=== PATIENT | female | born 1935 | race Caucasian/White ===

== ENCOUNTER 2017-02-20 11:47 | Inpatient (IN) | payer OTHER, MEDICARE ==
[~2017-02-20] VITALS: Ht 157.5 cm; Wt 65.9 kg
[2017-02-20] VITALS (11 sets, daily range): BP systolic 166–231; BP diastolic 81–120; PULSE 81–107; RESP 16–20; TEMP 98.2–98.3; O2SAT 96–99
[2017-02-20] MEDS ORDERED: SODIUM CHLOR 0.9% 1000 ML INJ 1,000 ML IV ONE (11:55)
--- NOTE | 2017-02-20 12:03 | PD ---
HPI Chief Complaint: stroke alert Time Seen by Provider: 11:55 Travel History International Travel<30 days: No Contact w/Intl Traveler<30days: No Traveled to known affect area: No History of Present Illness HPI This is an 81-year-old female who is currently at [facility] for a fractured pelvis, who presents after having an episode of unresponsiveness and dysarthria, facial droop followed by right sided upper and lower extremity weakness. Family member who is at the bedside stated that she was with her when this happened. She states that she had the above symptoms and then had an episode of emesis. The patient has obvious weakness in her right upper and right lower extremity. There is some residual weakness from the pelvic fracture. They report this is worse than her baseline from the pelvic fracture. [facility] Social History Tobacco Use: No Allergies-Medications (Allergen,Severity, Reaction): Coded Allergies: No Known Allergies (Verified , 02/20/17) Reported Meds & Prescriptions Reported Meds & Active Scripts Active Reported Tramadol (Tramadol HCl) 50 Mg Tab 100 Mg PO Q6H PRN One Daily Multivitamin (Multivitamin) 1 Each Tablet 1 Tab PO DAILY Milk of Magnesia Concentrate Liq (Magnesium Hydroxide) 1,200 Mg/5 Ml Susp 30 Ml PO DAILY PRN Folic Acid 800 Mcg Cap 800 Mcg PO BID Dulcolax Supp (Bisacodyl) 10 Mg Supp 10 Mg RECTAL DAILY PRN Citroma Liq (Magnesium Citrate) 300 Ml Liq 300 Ml PO DAILY PRN C-1000 (Ascorbic Acid) 1,000 Mg Tablet 1 Tab PO DAILY Tylenol (Acetaminophen) 325 Mg Tab 650 Mg PO Q4H PRN Review of Systems Except as stated in HPI: all other systems reviewed are Neg General / Constitutional: No: Fever HENT: No: Headaches, Vertigo, Neck Pain Cardiovascular: No: Chest Pain or Discomfort, Palpitations Respiratory: No: Cough, Shortness of Breath Gastrointestinal: Positive: Nausea (times one episode), Vomiting (times one episode) Genitourinary: No: Incontinence Musculoskeletal: Positive: Weakness (right sided lower extremity weakness from the pelvic fracture), Other (recent pelvic fracture) Neurologic: Positive: Weakness (right upper and right lower extremity), Change in Mentation (prior to arrival), Slurred Speech (reported prior to arrival, improved now), No: Headache Physical Exam Narrative GENERAL: Well-developed well-nourished female who is awake enzymes what confused. She does have some mild dysarthria. SKIN: Focused skin assessment warm/dry. HEAD: Atraumatic. Normocephalic. EYES: PNo scleral icterus. No injection or drainage. ENT: No nasal bleeding or discharge. Mucous membranes pink and moist. NECK: Trachea midline. No JVD. CARDIOVASCULAR: Tachycardic which appears to be sinus tach.. No murmur appreciated. RESPIRATORY: No accessory muscle use. Clear to auscultation. Breath sounds equal bilaterally. GASTROINTESTINAL: Abdomen soft, non-tender, nondistended. Hepatic and splenic margins not palpable. MUSCULOSKELETAL: No obvious deformities. No clubbing. No cyanosis. No edema. NEUROLOGICAL: Awake and confused. No obvious facial droop. Patient has weakness in her right upper extremity/3-4 out of 5. She has 2 out of 5 strength in the right lower extremity. Left upper and left lower extremity are 5 out of 5 strength PSYCHIATRIC: Appropriate mood and affect; insight and judgment normal. Data Data Last Documented VS Vital Signs Date Time Temp Pulse Resp B/P Pulse Ox O2 Delivery O2 Flow Rate FiO2 02/20/17 12:49 88 20 182/96 97 Nasal Cannula 2 02/20/17 11:47 98.3 Orders Diet Npo (02/20/17 Lunch) Activity Bed Rest (02/20/17 ) Electrocardiogram (02/20/17 ) I-Stat Creatinine (02/20/17 11:55) I-Stat Profile (02/20/17 11:55) Prothrombin Time / Inr (Pt) (02/20/17 11:55) Act Partial Throm Time (Ptt) (02/20/17 11:55) Complete Blood Count With Diff (02/20/17 11:55) Fibrinogen (02/20/17 11:55) Creatine Kinase (Cpk) (02/20/17 11:55) Troponin I (02/20/17 11:55) Ua Includes Microscopic (02/20/17 11:55) Drug Screen, Random Urine (02/20/17 11:55) Type And Screen (02/20/17 11:55) Ct Brain W/O Iv Contrast(Rout) (02/20/17 ) Consult Neurology (02/20/17 ) Blood Glucose (02/20/17 11:55) Ecg Monitoring (02/20/17 11:55) Neuro Checks Q2HX12,Q4H (02/20/17 11:55) Nursing Bedside Swallow Assess .ONCE (02/20/17 11:55) Iv Access Insert/Monitor (02/20/17 11:55) NPO (02/20/17 11:55) Oximetry (02/20/17 11:55) Oxygen Administration (02/20/17 11:55) Sodium Chlor 0.9% 1000 Ml Inj (Ns 1000 M (02/20/17 11:55) Resp Oxygen Matt C Titrat 1-4 L (02/20/17 11:55) Cath For Specimen (02/20/17 11:55) Metoprolol Tartrate Inj (Lopressor Inj) (02/20/17 12:15) Hydralazine Inj (Apresoline Inj) (02/20/17 12:30) (Hub Use Only)Inp Phy Cons/Ref (02/20/17 ) CKMB (02/20/17 12:15) CKMB% (02/20/17 12:15) Code Status (02/20/17 13:10) Vital Signs (Adult) Q4H (02/20/17 13:10) Nih Stroke Scale - Nihss .On admission and discharge (02/20/17 13:10) Neuro Checks Q4H (02/20/17 13:10) Consult Pt Eval & Treat (02/20/17 13:10) Case Management Consult (02/20/17 ) Activity Bed Rest (02/20/17 13:10) Nursing Bedside Swallow Assess .ONCE (02/20/17 13:10) Scd Bilateral/Knee High TORI.QSHIFT (02/20/17 13:10) Hemoglobin (Hgb) A1c (02/20/17 13:10) Lipid Profile (02/21/17 06:00) Us Carotid Arteries Comp Bilat (02/20/17 ) Mra Brain W/O Contrast (Cow) (02/20/17 ) Mri Brain W/O Contrast (02/20/17 ) Echo 2d Comp With Doppler (02/20/17 ) Remove Urinary Catheter .ONCE (02/20/17 13:10) Resp Oxygen Matt C Titrat 1-4 L (02/20/17 ) ^ Hold Medication (02/20/17 13:10) Sodium Chloride 0.9% Flush (Ns Flush) (02/20/17 21:00) Sodium Chloride 0.9% Flush (Ns Flush) (02/20/17 13:15) Sodium Chlor 0.9% 1000 Ml Inj (Ns 1000 M (02/20/17 13:10) Labetalol Inj (Trandate Inj) (02/20/17 13:15) Nicardipine Inj (Cardene Inj) (02/20/17 13:15) Aspirin Chew (Aspirin Chew) (02/21/17 09:00) Atorvastatin (Lipitor) (02/20/17 21:00) Bedside Glucose TORI.AC&HS (02/20/17 13:10) ^ Discontinue Insulin Orders (02/20/17 13:10) Insulin Aspart Supplemtl Scale (Novolog (02/20/17 16:00) Dextrose 50% In Breonna (Vial) Inj (D50w (Vi (02/20/17 13:15) Glucagon Inj (Glucagon Inj) (02/20/17 13:15) Consult Stoke Navigator (02/20/17 ) Heparin Inj (Heparin Inj) (02/20/17 13:15) Scd Bilateral/Knee High TORI.BID (02/20/17 13:10) Folic Acid (Folate) (02/20/17 21:00) (Nf) Ascorbic Acid (C-1000) (02/21/17 09:00) (Nf) Multivitamin (One Daily Multivitami (02/21/17 09:00) Hydralazine Inj (Apresoline Inj) (02/20/17 13:15) Labs Laboratory Tests Test 02/20/17 02/20/17 12:00 12:15 Blood Type A POSITIVE Antibody Screen NEGATIVE Blood Bank Comment White Blood Count 10.7 TH/MM3 Red Blood Count 4.24 MIL/MM3 Hemoglobin 13.7 GM/DL Bedside Hemoglobin 13.6 G/DL Hematocrit 40.2 % Bedside Hematocrit 40.0 % Mean Corpuscular Volume 94.6 FL Mean Corpuscular Hemoglobin 32.2 PG Mean Corpuscular Hemoglobin 34.0 % Concent Red Cell Distribution Width 14.0 % Platelet Count 297 TH/MM3 Mean Platelet Volume 8.1 FL Neutrophils (%) (Auto) 79.5 % Lymphocytes (%) (Auto) 9.4 % Monocytes (%) (Auto) 8.7 % Eosinophils (%) (Auto) 1.5 % Basophils (%) (Auto) 0.9 % Neutrophils # (Auto) 8.5 TH/MM3 Lymphocytes # (Auto) 1.0 TH/MM3 Monocytes # (Auto) 0.9 TH/MM3 Eosinophils # (Auto) 0.2 TH/MM3 Basophils # (Auto) 0.1 TH/MM3 CBC Comment DIFF FINAL Differential Comment Prothrombin Time 10.8 SEC Prothromb Time International 1.0 RATIO Ratio Activated Partial 27.1 SEC Thromboplast Time Fibrinogen 471 mg/dL Bedside Sodium 138 MMOL/L Bedside Potassium 3.8 MMOL/L Bedside Chloride 102 MMOL/L Bedside Blood Urea Nitrogen 15 MG/DL Bedside Creatinine 0.6 MG/DL Bedside Glucose 110 MG/DL Total Creatine Kinase 199 U/L Creatine Kinase MB 2.1 NG/ML Creatine Kinase MB % 1.1 % Troponin I LESS THAN 0.02 NG/ML MDM Medical Screen Exam Complete: Yes Emergency Medical Condition: Yes Differential Diagnosis TIA versus CVA versus hypertensive crisis Narrative Course 81-year-old female presents as a stroke alert. The patient had an episode where she became unresponsive with a facial droop and slurred speech. She also had right upper and right lower extremity weakness. She has residual right upper extremity and right lower extremity weakness from her injury 1-1/2 weeks ago. She had no facial droop with minimal slurred speech on my examination. Her stroke scale was 5. I discussed the case with Dr. Avalos, automotive fuel injection servicer neurologist who agrees at this point the patient is not a candidate for TPA given the fact that she had uncontrolled hypertension as well as the recent pelvic fracture. She's been given 2 doses of IV antihypertensives her blood pressure has come down to 180s over 90s. The case was discussed with Dr. Kirkpatrick, medical steel burner who will admit the patient to his service. Stroke Alert NIHSS NIH Stroke Scale Result: 5 NIHSS Time Completed: 11:47 Thrombolytic Contraindications Contraindications: Uncontrolled HTN at event Contraindications Comment: In addition to the uncontrolled hypertension, patient also had pelvic fracture within 2 weeks. This would make her at risk for internal bleeding if we were to give her TPA. This was discussed with Dr. Cristopher Avalos who agrees with the holding off on TPA. Diagnosis Diagnosis: Primary Impression: CVA (cerebral vascular accident) Qualified Code: I63.9 - Cerebrovascular accident (CVA), unspecified mechanism Additional Impression: Hypertensive crisis Admitting Physician Requests: Admit Guillermo Frankel MD Feb 20, 2017 12:03
[2017-02-20] MEDS ORDERED: METOPROLOL TARTRATE 5 MG/5 ML VIAL IV PUSH ONE (12:15)
--- NOTE | 2017-02-20 12:16 | RADRPT ---
EXAM DATE/TIME: 02/20/2017 12:02 [facility] COMPARISON: No previous studies available for comparison. INDICATIONS : Right side weakness RADIATION DOSE: 56.35 CTDIvol (mGy) This report was called by Dr. Johnson to <<Dr. Frankel> at <<1212pm>> MEDICAL HISTORY : Unable to obtain SURGICAL HISTORY : Unable to obtain ENCOUNTER: Initial ACUITY: 1 day PAIN SCALE: 0/10 LOCATION: cranial TECHNIQUE: Multiple contiguous axial images were obtained of the head. Using automated exposure control and adj ustment of the mA and/or kV according to patient size, radiation dose was kept as low as reasonably a chievable to obtain optimal diagnostic quality images. DICOM format image data is available electro nically for review and comparison. FINDINGS: There is marked central and cortical atrophy with dilatation of ventricular and sulcal spaces. There is no parenchymal hemorrhage, acute infarction or mass lesion identified. There are no extra-axial fluid collections appreciated. The posterior fossa is unremarkable with midline fourth ventricle. T he portion of the orbits and paranasal sinuses visualized are unremarkable. There is hypodensity in the left basal ganglia likely old lacunar stroke. Marked atherosclerot ic disease left internal carotid bifurcation. CONCLUSION: No acute disease. Macario Johnson MD on February 20, 2017 at 12:12 Board Certified Radiologist. This report was verified electronically.
[2017-02-20] MEDS ORDERED: hydrALAZINE HCL 20 MG/ML VIAL IV PUSH ONE (12:30)
[2017-02-20 12:33] LABS: I-STAT POTASSIUM 3.8 MMOL/L (3.5-4.9); I-STAT SODIUM 138 MMOL/L (138-146)
[2017-02-20 12:37] LABS: AUTOMATED NEUTROPHIL # 8.5 TH/MM3 (1.8-7.7); BASOPHIL # 0.1 TH/MM3 (0-0.2); BASOPHIL % 0.9 % (0.0-2.0); EOSINOPHIL # 0.2 TH/MM3 (0-0.4); EOSINOPHIL % 1.5 % (0.0-4.0); HEMATOCRIT 40.2 % (35.0-46.0); HEMO FLAGS DIFF FINAL; LYMPH % 9.4 % (9.0-44.0); MEAN CELL VOLUME 94.6 FL (80.0-100.0); MEAN CORPUSCULAR HEMOGLOBIN 32.2 PG (27.0-34.0); MONO % 8.7 % (0.0-8.0); NEUT % 79.5 % (16.0-70.0); PLATELET COUNT 297 TH/MM3 (150-450); RED BLOOD COUNT 4.24 MIL/MM3 (4.00-5.30); WHITE BLOOD COUNT 10.7 TH/MM3 (4.0-11.0)
[2017-02-20 12:47] LABS: APTT (PATIENT) 27.1 SEC (24.3-30.1); PROTHROMBIN TIME - PATIENT 10.8 SEC (9.8-11.6)
[2017-02-20] MEDS ORDERED: DULC10SU3 RECTAL (12:54)
[2017-02-20] MEDS ORDERED: FOLI1CAP7 PO (12:54)
[2017-02-20] MEDS ORDERED: CITRSOL4 PO (12:54)
[2017-02-20] MEDS ORDERED: MILK2400 PO (12:54)
[2017-02-20] MEDS ORDERED: ONE-TAB14 PO (12:54)
[2017-02-20] MEDS ORDERED: TRAM50TA PO (12:54)
[2017-02-20] MEDS ORDERED: TYLE325T PO (12:54)
[2017-02-20] MEDS ORDERED: ASCO1TAB14 PO (12:54)
[2017-02-20 12:55] LABS: CREATINE KINASE 199 U/L (26-192)
[2017-02-20 13:08] LABS: CKMB 2.1 NG/ML (0.5-3.6)
[2017-02-20] MEDS: SODIUM CHLOR 0.9% 1000 ML INJ 1,000 ML IV SCH (13:10)
[2017-02-20] MEDS ORDERED: ACETAMINOPHEN/HYDROcodone 325 MG/5 MG TAB PO PRN (13:15)
[2017-02-20] MEDS ORDERED: BISACODYL 10 MG SUPP RECTAL PRN (13:15)
[2017-02-20] MEDS ORDERED: MISCELLANEOUS NURSING INFORMATION XX SCH (13:15)
[2017-02-20] MEDS ORDERED: SODIUM CHLORIDE 0.9% FLUSH 5 ML FLUSH IV FLUSH PRN ×2 (13:15→21:45)
[2017-02-20] MEDS ORDERED: LACTULOSE SYRUP 20 GM/30 ML CUP PO PRN (13:15)
[2017-02-20] MEDS ORDERED: RESP: ALBUTEROL 2.5 MG/3 ML NEB (PRN) INH (13:15)
[2017-02-20] MEDS ORDERED: SODIUM CHLORIDE 0.9% FLUSH 10 ML FLUSH IV FLUSH PRN (13:15)
[2017-02-20] MEDS ORDERED: CHLORHEXIDINE GLUCONATE 2 % 1 PACK (2 CLOTHS) TOP PRN (13:15)
[2017-02-20] MEDS ORDERED: ONDANSETRON HCL 4 MG/2 ML VIAL IV PRN (13:15)
[2017-02-20] MEDS ORDERED: GLUCAGON 1 MG/ML VIAL OTHER PRN ×2 (13:15→21:45)
[2017-02-20] MEDS ORDERED: hydrALAZINE HCL 20 MG/ML VIAL IV PUSH PRN (13:15)
[2017-02-20] MEDS ORDERED: MAGNESIUM HYDROXIDE SUSP 30 ML CUP PO PRN (13:15)
[2017-02-20] MEDS ORDERED: SENNOSIDES 8.6 MG TAB PO PRN (13:15)
[2017-02-20] MEDS ORDERED: ACETAMINOPHEN 325 MG TAB PO PRN (13:15)
[2017-02-20] MEDS ORDERED: DEXTROSE 50% IN WATER 50 ML VIAL(D50) IV PUSH PRN ×2 (13:15→21:45)
[2017-02-20] MEDS ORDERED: niCARdipine INJ 25 MG in SODIUM CHLOR 0.9% 250 ML INJ 250 ML IV SCH (13:15)
--- NOTE | 2017-02-20 13:19 | HHI.HP ---
[facility] Service Critical Care Medicine Primary Care Physician Unknown Admission Diagnosis CVA Diagnosis: (1) CVA (cerebral vascular accident) Diagnosis: Principal (2) Hypertensive crisis Diagnosis: Principal (3) Pelvic fracture Diagnosis: Principal Chief Complaint: Right-sided weakness Travel History International Travel<30 Days: No Contact w/Intl Traveler <30 Da: No Traveled to Known Affected Are: No History of Present Illness 81-year-old . Admission . Past medical history includes hypertension. Patient is a resident of [facility]. Patient presents to [facility] from that facility with acute onset right-sided weakness and dysarthria. 20, patient was at a health food store one fell on her right side and had a right acetabular/pelvic fracture. Patient currently is weak on her right upper and lower extremity at baseline. At baseline. Today,. Presents to [facility] NIH score 5. 1 for right arm and leg drift, 2 for limb ataxia and [address] head revealed no acute intracranial findings. Dr. Avalos/neurology was notified. Due to recent pelvic fracture not a candidate for alteplase. Symptoms are resolving at the present time. Due to her underlying hypertension we are asked to Review of Systems Constitutional: COMPLAINS OF: Fatigue, DENIES: Fever, Weight gain, Weight loss Endocrine: DENIES: Polydipsia Eyes: DENIES: Blurred vision, Vision loss Ears, nose, mouth, throat: DENIES: Tinnitus, Oral lesions Respiratory: DENIES: Apneas Cardiovascular: DENIES: Chest pain Gastrointestinal: DENIES: Abdominal pain Genitourinary: DENIES: Urinary frequency, Urinary incontinence Musculoskeletal: COMPLAINS OF: Joint pain, Joint Swelling, DENIES: Back pain Integumentary: DENIES: Pruritus, Rash Hematologic/lymphatic: COMPLAINS OF: Bruising Immunologic/allergic: DENIES: Eczema Neurologic: DENIES: Abnormal gait, Headache Psychiatric: COMPLAINS OF: Confusion, DENIES: Anxiety Past Family Social History Allergies: Coded Allergies: No Known Allergies (Verified , 02/20/17) Past Medical History Hypertension Past Surgical History None Reported Medications Tramadol (Tramadol HCl) 50 Mg Tab 100 Mg PO Q6H PRN One Daily Multivitamin (Multivitamin) 1 Each Tablet 1 Tab PO DAILY Milk of Magnesia Concentrate Liq (Magnesium Hydroxide) 1,200 Mg/5 Ml Susp 30 Ml PO DAILY PRN Folic Acid 800 Mcg Cap 800 Mcg PO BID Dulcolax Supp (Bisacodyl) 10 Mg Supp 10 Mg RECTAL DAILY PRN Citroma Liq (Magnesium Citrate) 300 Ml Liq 300 Ml PO DAILY PRN C-1000 (Ascorbic Acid) 1,000 Mg Tablet 1 Tab PO DAILY Tylenol (Acetaminophen) 325 Mg Tab 650 Mg PO Q4H PRN Active Ordered Medications Reviewed in EMR Family History Mother and father both at early age due to alcohol abuse Social History Drinks one glass of wine daily. Quit tobacco in 1967. No IV drug use. Physical Exam Vital Signs Vital Signs Date Time Temp Pulse Resp B/P Pulse Ox O2 Delivery O2 Flow Rate FiO2 02/20/17 12:49 88 20 182/96 97 Nasal Cannula 2 02/20/17 12:36 81 20 212/105 97 Room Air 02/20/17 12:01 96 Nasal Cannula 2.00 02/20/17 11:47 97 Nasal Cannula 2 02/20/17 11:47 98.3 96 20 231/120 97 Physical Exam GENERAL: 81-year-old female, critically ill currently resting in bed in no acute distress SKIN: Warm and dry. No rash. Ecchymoses noted over right hip greater trochanteric region about 4 x 4 centimeters HEAD: Atraumatic. Normocephalic. EYES: Right pupil round 3 mm and fixed. Left pupil 2-3 mm and reactive No scleral icterus. No injection or drainage. ENT: No nasal bleeding or discharge. Mucous membranes pink and moist. NECK: Trachea midline. No JVD. CARDIOVASCULAR: Regular rate and rhythm. S1, S2. No S4 without murmur RESPIRATORY: Clear to auscultation bilaterally without wheezes rales or rhonchi GASTROINTESTINAL: Abdomen soft, non-tender, nondistended. Hepatic and splenic margins not palpable. MUSCULOSKELETAL: Right lower extremity everted. No sinus Peripheral edema. NEUROLOGICAL: Awake and alert. No obvious cranial nerve deficits. Strength 4 out of 5 right upper extremity. 3 out of 5 right lower extremity. 5+ out of 5 left upper extremity. Normal sensation to light touch and pinprick. Currently no pronator drift. Gait was not assessed. Laboratory Laboratory Tests Test 02/20/17 02/20/17 12:00 12:15 Blood Type A POSITIVE Blood Bank Comment White Blood Count 10.7 Red Blood Count 4.24 Hemoglobin 13.7 Bedside Hemoglobin 13.6 Hematocrit 40.2 Bedside Hematocrit 40.0 Mean Corpuscular Volume 94.6 Mean Corpuscular Hemoglobin 32.2 Mean Corpuscular Hemoglobin 34.0 Concent Red Cell Distribution Width 14.0 Platelet Count 297 Mean Platelet Volume 8.1 Neutrophils (%) (Auto) 79.5 Lymphocytes (%) (Auto) 9.4 Monocytes (%) (Auto) 8.7 Eosinophils (%) (Auto) 1.5 Basophils (%) (Auto) 0.9 Neutrophils # (Auto) 8.5 Lymphocytes # (Auto) 1.0 Monocytes # (Auto) 0.9 Eosinophils # (Auto) 0.2 Basophils # (Auto) 0.1 CBC Comment DIFF FINAL Differential Comment Prothrombin Time 10.8 Prothromb Time International 1.0 Ratio Activated Partial 27.1 Thromboplast Time Fibrinogen 471 Bedside Sodium 138 Bedside Potassium 3.8 Bedside Chloride 102 Bedside Blood Urea Nitrogen 15 Bedside Creatinine 0.6 Bedside Glucose 110 Total Creatine Kinase 199 Creatine Kinase MB 2.1 Creatine Kinase MB % 1.1 Troponin I LESS THAN 0.02 Result Diagram: 02/20/17 1215 Imaging Last Impressions Head CT 02/20/17 0000 Signed Impressions: Service Date/Time: Monday, February 20, 2017 12:02 - CONCLUSION: No acute disease. Macario Johnson MD Assessment and Plan Assessment and Plan Neuro/Psych: TIA? Right upper/lower extremity weakness acute CT brain 02/20 revealed no acute intracranial findings Neurology/Dr. Avalos consulted No plans for alteplase present due to recent pelvic fractures MRI/MRA brain ordered. Carotid Dopplers ordered Hemoglobin A1c, lipid panel ordered 2-D echocardiogram ordered Neurochecks per protocol CV: Hypertension crisis EKG revealed normal sinus rhythm rate 85. Normal IA, QT intervals. Troponin 0.02 2-D echocardiogram ordered purse stroke protocol Will keep systolic blood pressure less than 220, diastolic pressure less than 120 for 24 hours Lipid panel ordered Resp: Nasal cannula to maintain saturations greater than or equal to 92% Incentive spirometry while awake GI: Patient is currently nothing by mouth Protonix for GI prophylaxis Tammy-Colace for bowel regimen : Canales catheter if indicated for accurate I's and O's in a critically ill patient. Remove within 48 hours Endo: Sliding-scale insulin if indicated to maintain euglycemia Check hemoglobin A1c Renal: Creatinine currently within normal limits Urine output accurate I's and O's Heme: CBC within normal limits Coags within normal limits Recheck in a.m. ID: Monitor for infection FEN: Replace electrolytes as clinically indicated MSK: Recent pelvic fracture Obtain records from [facility] PT/OT evaluate and treat Access - Utilize peripheral IV. Central line if indicated Prophylaxis - GI - Protonix - DVT - SCD/heparin subcutaneous Level III admission Code Status Full code Discussed Condition With Dr. Frankel. Care plan discussed all questions answered. Problem Qualifiers (1) CVA (cerebral vascular accident): Qualified Code: I63.9 - Cerebrovascular accident (CVA), unspecified mechanism (2) Pelvic fracture: Qualified Code: S32.9XXS - Closed nondisplaced fracture of pelvis, unspecified part of pelvis, sequela Simone Kirkpatrick MD Feb 20, 2017 13:19
[2017-02-20 14:23] LABS: AMPHETAMINE, URINE NEG (NEG); BARBITURATES, URINE NEG (NEG); COCAINE, URINE NEG (NEG)
[2017-02-20 14:28] LABS: BACTERIA, URINE OCC /hpf; BLOOD, URINE NEG (NEG); GLUCOSE,URINE NEG (NEG); KETONE, URINE NEG (NEG); MUCUS URINE FEW /lpf (OCC); NITRITE,URINE NEG (NEG); SQUAMOUS EPITHELIAL CELL URINE <1 /hpf (0-5); URINE COLOR YELLOW (YELLW/STRAW)
--- NOTE | 2017-02-20 14:59 | RADRPT ---
EXAM DATE/TIME: 02/20/2017 13:53 [facility] COMPARISON: No previous studies available for comparison. INDICATIONS : Cerebrovascular accident. MEDICAL HISTORY : Hypertension. Confusion. SURGICAL HISTORY : None. ENCOUNTER: Initial ACUITY: 1 day PAIN SCORE: 08/16 LOCATION: Bilateral neck PEAK SYSTOLIC VELOCITIES (cm/sec): ICA/CCA RATIO: Right: 0.7 Left: 1.9 ICA: Right: 66 Left: 155 CCA: Right: 98 Left: 81 ECA: Right: 100 Left: 151 VERTEBRAL: Right: 33 antegrade Left: 34 antegrade Elevated flow velocities and ICA/CCA ratios have been found to correlate with increased degrees of vessel stenosis, calculated as percentage of diameter relative to a normal segment of distal ICA/CCA FINDINGS: RIGHT CAROTID: Calcified atherosclerotic plaque involving the carotid bulb and ICA origin. Less than 50% narrowing o f the ICA on grayscale analysis. The waveforms are within normal limits. LEFT CAROTID: Mild calcified plaque involving the ICA origin. No significant stenosis is visualized. The waveforms are within normal limits. VERTEBRAL ARTERIES: Antegrade flow is seen in both vertebral arteries. MISCELLANEOUS: None. CONCLUSION: 1. Calcified atherosclerotic plaque more abundant on the right. No hemodynamically significant stenos is observed. Mild elevation of the velocities of the distal left ICA felt to be due to the tortuosity of that vessel. 2. Antegrade flow involving both vertebral arteries. Tashi Polk Jr., MD on February 20, 2017 at 14:55 Board Certified Radiologist. This report was verified electronically.
[2017-02-20 15:26] LABS: TOTAL BILIRUBIN ADULT 0.9 MG/DL (0.2-1.0)
[2017-02-20 15:28] LABS: INDIRECT BILIRUBIN 0.7 MG/DL (0.0-0.8)
[2017-02-20] MEDS: HEPARIN SODIUM - SQ 10,000 UNITS/ML VIAL SQ SCH (15:49)
[2017-02-20] MEDS ORDERED: INSULIN ASPART SUPPLEMENTAL SCALE SQ SCH (16:00)
[2017-02-20 17:15] LABS: HEMOGLOBIN A1a 0.9 %; HEMOGLOBIN A1b 0.8 %; HEMOGLOBIN Ao 85.5 %; HEMOGLOBIN F 0.9 %; HEMOGLOBIN LA1C 2.2 %; HEMOGLOBIN P3 3.8 %
[2017-02-20] MEDS ORDERED: traMADol HCL 50 MG TAB PO ONE (19:15)
--- NOTE | 2017-02-20 19:29 | MG ---
cc: JACOB YOU MD Lab No: Date: Age: Sex: F Race: REFERRING PHYSICIAN: Dr. Kirkpatrick. HISTORY: Unresponsive, dysarthria, right-sided weakness, facial droop / stroke alert. MEDICATIONS: 1. Apresoline. 2. Lopressor. 3. Folic acid. 4. Tylenol. 5. A multivitamin. 6. Tramadol. DESCRIPTION OF THE RECORDING: The EEG recording shows intermittent slowing. There is phase reversal at epoch 123. There are sharp-like activities bilateral seen during the recording with occasional slowing of the background. Hyperventilation was not done. Photic stimulation did not induce driving response. INTERPRETATION: This is an abnormal EEG. The intermittent slowing may indicate an encephalopathic pattern. No electrographic seizures seen but the EEG recording reveals evidence of possible epileptogenicity. Clinical correlation is recommended. Jacob You MD [facility] /7:24 PM /7:30 PM
[2017-02-20] MEDS: ATORVASTATIN 10 MG TAB PO SCH (20:50)
[2017-02-20] MEDS: FOLIC ACID 1 MG TAB PO SCH (20:50)
[2017-02-20] MEDS: DOCUSATE SODIUM 50 MG/SENNA 8.6 MG TAB PO SCH (20:51)
[2017-02-20] MEDS ORDERED: SODIUM CHLORIDE 0.9% FLUSH 10 ML FLUSH IV FLUSH SCH (21:00)
[2017-02-20] MEDS ORDERED: SODIUM CHLORIDE 0.9% FLUSH 5 ML FLUSH IV FLUSH SCH (21:00)
[2017-02-20] MEDS: LABETALOL HCL 100 MG/20 ML VIAL IV PRN (22:03)
[2017-02-21] VITALS (11 sets, daily range): BP systolic 128–209; BP diastolic 77–107; PULSE 59–97; RESP 17–24; TEMP 96.5–99.2; O2SAT 94–96
[2017-02-21] MEDS: SODIUM CHLOR 0.9% 1000 ML INJ 1,000 ML IV SCH ×2 (03:28→16:47)
[2017-02-21] MEDS: CHLORHEXIDINE GLUCONATE 2 % 1 PACK (2 CLOTHS) TOP SCH (04:00)
[2017-02-21] MEDS: HEPARIN SODIUM - SQ 10,000 UNITS/ML VIAL SQ SCH ×2 (04:01→14:49)
[2017-02-21 04:35] LABS: MAGNESIUM 2.1 MG/DL (1.5-2.5)
[2017-02-21 04:37] LABS: HDL CHOLESTEROL 63.6 MG/DL (40.0-60.0); LDL CHOLESTEROL 96 MG/DL (0-99)
[2017-02-21] MEDS: INSULIN ASPART SUPPLEMENTAL SCALE SQ SCH ×4 (06:48→20:55)
[2017-02-21] MEDS: LABETALOL HCL 100 MG/20 ML VIAL IV PRN (07:32)
--- NOTE | 2017-02-21 08:31 | MB ---
cc: RUTH CASIANO M.D. DATE OF CONSULTATION 02/20/2017 REASON FOR CONSULTATION Stroke alert HISTORY OF PRESENT ILLNESS Ms. Bhakta is a very nice 81-year-old woman who has a history of recent pelvic fracture a couple of weeks ago. She is a resident at [facility]. She developed acute onset of right-sided weakness involving the arm and leg today and presented to the hospital as a stroke alert. I discussed the case to Dr. Guillermo Frankel in the ER. Her NIH stroke scale is a five. Her CT was negative. She was showing significant improvement in her symptoms because of the recent hip fracture. I felt that she was not a candidate for IV tPA especially in view of the fact that she was improving. She was also not a candidate for evaluation for interventional therapy given the NIH stroke scale less than six and no aphasia. In the interim, she has shown significant improvement in her right-sided strength, but still feels somewhat weak on the right side. PAST MEDICAL HISTORY 1. History of recent pelvic fracture. 2. Hypertension MEDICATIONS AT HOME 1. Tramadol 2. Multivitamins 3. Milk of Magnesia 4. Folic acid 5. Dulcolax 6. Citroma 7. Tylenol 8. Vitamin C 9. She takes an aspirin 81 mg daily. NEUROLOGIC EXAMINATION VITAL SIGNS: Her blood pressure is 217/106, pulse is 90, respirations are 20, temperature 98.2 degrees. Higher cortical functions normal. Cranial nerves intact. Motor exam, she has trace weakness in the right arm and right leg at 4+/5 with normal strength on the left. Sensory exam intact. Reflexes symmetric. CT of the brain, no acute change present. Carotid ultrasound, calcified plaque more on the right. No significant lesion identified. LABORATORY DATA The white count is 10,700, hemoglobin 13.7, hematocrit 40.2% platelet count 297,000, PT 10.8, INR 1, APTT 27. Sodium 138, potassium 3.8, chloride 102, BUN is 15, creatinine 0.6, glucose 110. IMPRESSION Left hemisphere stroke versus TIA. The patient was not a tPA candidate due to the recent pelvic fracture and also improving NIH stroke scale. RECOMMENDATIONS I would increase the aspirin to 325 mg daily. We will check an echocardiogram, monitor cardiac telemetry to rule out atrial fibrillation and also check a lipid panel. MD ANGELA Crooks /9:46 PM /8:30 AM
[2017-02-21] MEDS ORDERED: ASPIRIN 81 MG CHEW TAB PO SCH (09:00)
--- NOTE | 2017-02-21 09:06 | HHI.CCPN ---
Subjective Remarks/Hospital Course 81-year-old . Admission . Past medical history includes hypertension. Patient is a resident of [facility]. Patient presents to [facility] from that facility with acute onset right-sided weakness and dysarthria. 20, patient was at a health food store one fell on her right side and had a right acetabular/pelvic fracture. Patient currently is weak on her right upper and lower extremity at baseline. At baseline. Today,. Presents to [facility] NIH score 5. 1 for right arm and leg drift, 2 for limb ataxia and [address] head revealed no acute intracranial findings. Dr. Avalos/neurology was notified. Due to recent pelvic fracture not a candidate for alteplase. Symptoms are resolving at the present time. Due to her underlying hypertension we are asked to admit Subjective 02/21: Lying in bed. Remains with right upper extremity weakness. Still somewhat confused. EEG noted to be abnormal as below. MRI/A brain pending. Carotid Dopplers showed less than 50% stenosis right greater than left. Objective Vital Signs Date Time Temp Pulse Resp B/P Pulse Ox O2 Delivery O2 Flow Rate FiO2 02/21/17 06:00 62 02/21/17 04:00 98.7 21 209/107 95 02/20/17 20:04 Nasal Cannula 2.00 Intake and Output 02/20/17 02/20/17 02/20/17 07:59 15:59 23:59 Intake Total 669 ml Balance 669 ml Result Diagram: 02/20/17 1215 Imaging Last [address] 02/20/17 0000 Signed Impressions: Service Date/Time: Monday, February 20, 2017 12:02 - CONCLUSION: No acute disease. Macaroi Johnson MD Carotid Artery Ultrasound 02/20/17 0000 Signed Impressions: Service Date/Time: Monday, February 20, 2017 13:53 - CONCLUSION: 1. Calcified atherosclerotic plaque more abundant on the right. No hemodynamically significant stenosis observed. Mild elevation of the velocities of the distal left ICA felt to be due to the tortuosity of that vessel. 2. Antegrade flow involving both vertebral arteries. Tashi Polk Jr., MD Objective Remarks GENERAL: 81-year-old female, critically ill currently resting in bed in no acute distress SKIN: Warm and dry. No rash. Ecchymoses noted over right hip greater trochanteric region about 4 x 4 centimeters HEAD: Atraumatic. Normocephalic. EYES: Right pupil round 3 mm and fixed. Left pupil 2-3 mm and reactive No scleral icterus. No injection or drainage. ENT: No nasal bleeding or discharge. Mucous membranes pink and moist. NECK: Trachea midline. No JVD. CARDIOVASCULAR: Regular rate and rhythm. S1, S2. No S4 without murmur RESPIRATORY: Clear to auscultation bilaterally without wheezes rales or rhonchi GASTROINTESTINAL: Abdomen soft, non-tender, nondistended. Hepatic and splenic margins not palpable. MUSCULOSKELETAL: Right lower extremity everted. No sinus Peripheral edema. NEUROLOGICAL: Awake and alert. No obvious cranial nerve deficits. Strength 4 out of 5 right upper extremity. 3 out of 5 right lower extremity. 5+ out of 5 left upper extremity. Normal sensation to light touch and pinprick. Currently no pronator drift. Gait was not assessed. A/P Assessment and Plan Neuro/Psych: TIA? Versus left hemispheric stroke Right upper/lower extremity weakness acute Possible right epileptiform activity CT brain 02/20 revealed no acute intracranial findings Carotid Dopplers 02/20 revealed less than 50% stenosis plaque at carotid bulb right ICA. Left carotid bulb with negative stenosis. EEG revealed moderate encephalopathy with possible epileptiform activity right side. Restarting Keppra 500 IV twice a day. Repeat EEG in a.m. Neurology/Dr. Avalos consulted No plans for alteplase present due to recent pelvic fractures MRI/MRA brain ordered. Hemoglobin A1c I 5.5, lipid panel showed elevated HDL of 63. Otherwise normal 2-D echocardiogram ordered Neurochecks per protocol Given aspirin 325 mg by mouth daily CV: Hypertension crisis Elevated HDL EKG revealed normal sinus rhythm rate 85. Normal UT, QT intervals. Troponin 0.02 2-D echocardiogram ordered complete stroke protocol Will keep systolic blood pressure less than 220, diastolic pressure less than 120 for 24 hours Continue Lipitor 10mg by mouth daily Resp: Nasal cannula to maintain saturations greater than or equal to 92% Incentive spirometry while awake GI: Advance diet as tolerated Protonix for GI prophylaxis Tammy-Colace for bowel regimen : Canales catheter if indicated for accurate I's and O's in a critically ill patient. Remove within 48 hours Endo: Sliding-scale insulin if indicated to maintain euglycemia Check hemoglobin A1c5.5 Renal: Creatinine currently within normal limits Urine output accurate I's and O's Heme: CBC within normal limits Coags within normal limits Recheck in a.m. ID: Monitor for infection FEN: Replace electrolytes as clinically indicated MSK: Recent pelvic fracture Obtain records from [facility] PT/OT evaluate and treat Access - Utilize peripheral IV. Central line if indicated Prophylaxis - GI - Protonix - DVT - SCD/heparin subcutaneous Level II follow-up Simone Kirkpatrick MD Feb 21, 2017 09:06
[2017-02-21] MEDS: SODIUM CHLORIDE 0.9% FLUSH 5 ML FLUSH IV FLUSH SCH ×2 (09:40→20:56)
[2017-02-21] MEDS: PANTOPRAZOLE SODIUM 40 MG VIAL IV SCH (09:40)
[2017-02-21] MEDS: DOCUSATE SODIUM 50 MG/SENNA 8.6 MG TAB PO SCH ×2 (09:41→20:54)
[2017-02-21] MEDS: ASPIRIN 325 MG TAB PO SCH (09:41)
[2017-02-21] MEDS: ASCORBIC ACID 500 MG TAB PO SCH (09:41)
[2017-02-21] MEDS: FOLIC ACID 1 MG TAB PO SCH ×2 (09:41→20:54)
[2017-02-21] MEDS: MULTIVITAMIN TAB PO SCH (09:41)
[2017-02-21] MEDS ORDERED: levETIRAcetam INJ 500 MG in SODIUM CHLORIDE 0.9% INJ 100 ML IV ONE (09:45)
[2017-02-21] MEDS ORDERED: amLODIPine BESYLATE 5 MG TAB PO ONE (09:45)
[2017-02-21] MEDS ORDERED: NITROGLYCERIN 2% OINT 1 GM PACKET TOPICAL PRN (09:45)
[2017-02-21] MEDS ORDERED: CARVEDILOL 6.25 MG TAB PO ONE (09:45)
--- NOTE | 2017-02-21 09:46 | PD.TRANSFR ---
Transfer Summary Admission Date Feb 20, 2017 at 16:07 Transfer Date: Feb 21, 2017 Admitting Diagnosis CVA Diagnoses: (1) CVA (cerebral vascular accident) Diagnosis: Principal (2) Hypertensive crisis Diagnosis: Principal (3) Pelvic fracture Diagnosis: Principal Significant Findings CT head- no acute intracranial findings Carotid Dopplers - less than 50% stenosis right greater than left EEG - possible epileptic activity right hemispheric Transfer Summary/Subjective See below Objective Vital Signs Date Time Temp Pulse Resp B/P Pulse Ox O2 Delivery O2 Flow Rate FiO2 02/21/17 06:00 62 02/21/17 04:00 98.7 21 209/107 95 02/20/17 20:04 Nasal Cannula 2.00 Intake and Output 02/20/17 02/20/17 02/21/17 08:00 16:00 00:00 Intake Total 669 ml Balance 669 ml Result Diagram: 02/20/17 1215 Imaging Last [address] 02/20/17 0000 Signed Impressions: Service Date/Time: Monday, February 20, 2017 12:02 - CONCLUSION: No acute disease. Macario Johnson MD Carotid Artery Ultrasound 02/20/17 0000 Signed Impressions: Service Date/Time: Monday, February 20, 2017 13:53 - CONCLUSION: 1. Calcified atherosclerotic plaque more abundant on the right. No hemodynamically significant stenosis observed. Mild elevation of the velocities of the distal left ICA felt to be due to the tortuosity of that vessel. 2. Antegrade flow involving both vertebral arteries. Tashi Polk Jr., MD Objective Remarks GENERAL: 81-year-old female, critically ill currently resting in bed in no acute distress SKIN: Warm and dry. No rash. Ecchymoses noted over right hip greater trochanteric region about 4 x 4 centimeters HEAD: Atraumatic. Normocephalic. EYES: Right pupil round 3 mm and fixed. Left pupil 2-3 mm and reactive No scleral icterus. No injection or drainage. ENT: No nasal bleeding or discharge. Mucous membranes pink and moist. NECK: Trachea midline. No JVD. CARDIOVASCULAR: Regular rate and rhythm. S1, S2. No S4 without murmur RESPIRATORY: Clear to auscultation bilaterally without wheezes rales or rhonchi GASTROINTESTINAL: Abdomen soft, non-tender, nondistended. Hepatic and splenic margins not palpable. MUSCULOSKELETAL: Right lower extremity everted. No sinus Peripheral edema. NEUROLOGICAL: Awake and alert. No obvious cranial nerve deficits. Strength 4 out of 5 right upper extremity. 3 out of 5 right lower extremity. 5+ out of 5 left upper extremity. Normal sensation to light touch and pinprick. Currently no pronator drift. Gait was not assessed. A/P Assessment and Plan Neuro/Psych: TIA? Versus left hemispheric stroke Right upper/lower extremity weakness acute Possible right epileptiform activity CT brain 02/20 revealed no acute intracranial findings Carotid Dopplers 02/20 revealed less than 50% stenosis plaque at carotid bulb right ICA. Left carotid bulb with negative stenosis. EEG revealed moderate encephalopathy with possible epileptiform activity right side. Restarting Keppra 500 IV twice a day. Repeat EEG in a.m. Neurology/Dr. Avalos consulted No plans for alteplase present due to recent pelvic fractures MRI/MRA brain ordered. Hemoglobin A1c I 5.5, lipid panel showed elevated HDL of 63. Otherwise normal 2-D echocardiogram ordered Neurochecks per protocol Given aspirin 325 mg by mouth daily CV: Hypertension crisis Elevated HDL EKG revealed normal sinus rhythm rate 85. Normal OH, QT intervals. Troponin 0.02 2-D echocardiogram ordered complete stroke protocol Will keep systolic blood pressure less than 220, diastolic pressure less than 120 for 24 hours Continue Lipitor 10mg by mouth daily Resp: Nasal cannula to maintain saturations greater than or equal to 92% Incentive spirometry while awake GI: Advance diet as tolerated Protonix for GI prophylaxis Tammy-Colace for bowel regimen : Canales catheter if indicated for accurate I's and O's in a critically ill patient. Remove within 48 hours Endo: Sliding-scale insulin if indicated to maintain euglycemia Check hemoglobin A1c5.5 Renal: Creatinine currently within normal limits Urine output accurate I's and O's Heme: CBC within normal limits Coags within normal limits Recheck in a.m. ID: Monitor for infection FEN: Replace electrolytes as clinically indicated MSK: Recent pelvic fracture Obtain records from [facility] PT/OT evaluate and treat Access - Utilize peripheral IV. Central line if indicated Prophylaxis - GI - Protonix - DVT - SCD/heparin subcutaneous Level II follow-up Simone Kirkpatrick MD Feb 21, 2017 09:45
[2017-02-21 10:40] LABS: COMMENT (UR) CULTURE INDICATED; CULTURE IF INDICATED CULTURE INDICATED
[2017-02-21 12:35] LABS: HEMATOCRIT 37.5 % (35.0-46.0); MEAN CELL VOLUME 94.5 FL (80.0-100.0); MEAN CORPUSCULAR HEMOGLOBIN 32.3 PG (27.0-34.0); MEAN CORPUSCULAR HGB CONC 34.2 % (32.0-36.0); PLATELET COUNT 297 TH/MM3 (150-450); RED BLOOD COUNT 3.97 MIL/MM3 (4.00-5.30); RED CELL DISTRIBUTION WIDTH 13.6 % (11.6-17.2); REVIEW FLAG FINAL; WHITE BLOOD COUNT 8.5 TH/MM3 (4.0-11.0)
[2017-02-21 12:56] LABS: BICARBONATE 23.3 MEQ/L (21.0-32.0); POTASSIUM 3.4 MEQ/L (3.5-5.1)
[2017-02-21] MEDS: ACETAMINOPHEN 1000 MG/100 ML VIAL IV SCH ×2 (14:49→20:55)
[2017-02-21] MEDS ORDERED: POTASSIUM CHLORIDE 20 MEQ CONTROLLED RELEASE TAB PO ONE (15:15)
[2017-02-21 16:12] LABS: HEMOGLOBIN A1b 0.8 %; HEMOGLOBIN Ao 85.7 %; HEMOGLOBIN F 0.9 %; HEMOGLOBIN LA1C 1.9 %; HEMOGLOBIN P3 3.8 %
--- NOTE | 2017-02-21 16:24 | RADRPT ---
EXAM DATE/TIME: 02/21/2017 15:48 [facility] COMPARISON: CT BRAIN W/O CONTRAST, February 20, 2017, 12:02. INDICATIONS : Stroke. Right sided weakness. MEDICAL HISTORY : Hypertension. SURGICAL HISTORY : Hand surgery. ENCOUNTER: Initial ACUITY: 2 day PAIN SCORE: 0/10 LOCATION: head TECHNIQUE: Multiplanar, multisequence MRI of the brain was performed without contrast. FINDINGS: CEREBRUM: There is cerebral atrophy. There are areas of high flair abnormality within both occipital lobes, bot h cerebellar hemispheres and the brainstem greater on the left. Consistent with bilateral multifocal areas of acute infarction. No evidence of midline shift, mass lesion, hemorrhage. No extraaxial fluid collections are seen. The pituitary gland and suprasellar cistern are normal in configuration. WHITE MATTER: No significant signal abnormalities are seen in the white matter. POSTERIOR FOSSA: High flair abnormality within the brainstem and cerebellar hemispheres bilaterally. The 4th ventricl e is midline. The cerebellopontine angle is unremarkable. The cerebellar tonsils are normal in posit ion. DIFFUSION IMAGING: Multifocal focal areas of restricted diffusion are seen in both cerebellar hemispheres and throughout the left brain stem and both occipital lobes and to lesser degree in the right parietal lobe. Multif ocal acute areas of infarction. EXTRACRANIAL: The visualized portions of the orbits and paranasal sinuses are unremarkable. CONCLUSION: 1. Multifocal areas of acute infarction within both cerebellar hemispheres, occipital lobes, left bra in stem and right parietal lobe concerning for showering emboli. Echocardiogram recommended. 2. Cerebral atrophy and chronic ischemic small vessel vasculopathy. Geovanny Sagastume MD on February 21, 2017 at 16:18 Board Certified Radiologist. This report was verified electronically.
--- NOTE | 2017-02-21 17:02 | RADRPT ---
EXAM DATE/TIME: 02/21/2017 15:48 [facility] COMPARISON: No previous studies available for comparison. INDICATIONS : CVA. Right sided weakness. MEDICAL HISTORY : Hypertension. SURGICAL HISTORY : Hand surgery. ENCOUNTER: Initial ACUITY: 2 day PAIN SCORE: 0/10 LOCATION: head Please note a normal MRA of the brain does not entirely exclude the possibility of a small aneurysm, nor the possibility of distal intracranial vessel disease. TECHNIQUE: 3D time of flight MRA was performed. Source images, multiplanar STS MIP, and 3D volume MIP reconstru ctions were reviewed. FINDINGS: There is excellent visualization of the major intracranial arteries out to the second-order branch ve ssels. There is no evidence for aneurysm, and no evidence for vascular malformation. The origin of the RIGHT M2 segment is 50% narrowed. CONCLUSION: The origin of the RIGHT M2 segment is 50% narrowed. The basilar artery is diffusely narrowed which i s mostly artifactual. Macario Johnson MD on February 21, 2017 at 16:56 Board Certified Radiologist. This report was verified electronically.
--- NOTE | 2017-02-21 18:30 | ECHRPT ---
Indication: CVA/TIA CONCLUSIONS Normal left ventricular size. No regional wall motion abnormalities are present. No regional wall mo tion abnormalities are present. Nonobstructive prominent basal hypertrophy is present consistent with sigmoid septum. Aortic valve sclerosis is present. Mild aortic valve regurgitation. No aortic valve stenosis. There is trace tricuspid valve regurgitation. Normal estimated pulmonary pressures. BP: 182 / 96 HR: 88 Rhythm: Sinus MEASUREMENTS (Male / Female) Normal Values Technical Quality:Very technically difficult study 2D ECHO LVOT Diameter 1.8 cm Aortic Root Diameter 3.8 cm M-MODE AV Cusp Separation MM 1.4 cm DOPPLER AV Peak Velocity 156.0 cm/s AV Peak Gradient 9.7 mmHg AV Mean Gradient 5.2 mmHg AV Velocity Time Integral 30.1 cm LVOT Peak Velocity 102.0 cm/s LVOT Peak Gradient 4.2 mmHg LVOT Velocity Time Integral 23.5 cm LVOT Cardiac Index 3061.2 cm/minm AV Area Cont Eq vti 2.0 cm AV Area Cont Eq pk 1.7 cm LV E' Lateral Velocity 5.3 cm/s LV E' Septal Velocity 3.7 cm/s FINDINGS LEFT VENTRICLE Normal left ventricular size. No regional wall motion abnormalities are present. No regional wall mo tion abnormalities are present. Nonobstructive prominent basal hypertrophy is present consistent with sigmoid septum. RIGHT VENTRICLE Normal right ventricular size and systolic function. LEFT ATRIUM The left atrial size is normal. RIGHT ATRIUM The right atrial size is normal. ATRIAL SEPTUM Normal atrial septal thickness without atrial level shunting by limited color doppler interrogation. AORTA The aortic root and proximal ascending aorta are normal in size on limited imaging. MITRAL VALVE Structurally normal mitral valve. No mitral valve stenosis or regurgitation. AORTIC VALVE Aortic valve sclerosis is present. Mild aortic valve regurgitation. No aortic valve stenosis. TRICUSPID VALVE Structurally normal tricuspid valve. There is trace tricuspid valve regurgitation. Normal estimated pulmonary pressures. PULMONARY VALVE The pulmonary valve is not well visualized. VESSELS The inferior vena cava is normal in size. PERICARDIUM No pericardial effusion. Gabriela Deal MD, FACC (Electronically Signed) Final Date:21 February 2017 18:30
--- NOTE | 2017-02-21 19:18 | EKG ---
Date Performed: 02/20/2017 Time Performed: 12:18:17 PTAGE: 81 years EKG: PROBABLE ECTOPIC RHYTHM THEN Sinus rhythm ABNORMAL RHYTHM ECG PREVIOUS TRACING : 09/15/2005 10.02 Compared to the previous tracing, previously only sinus rhy thm DOCTOR: Garry Tovar Interpretating Date/Time 02/21/2017 19:17:24
--- NOTE | 2017-02-21 19:35 | HHI.PR ---
Review/Management Diagnosis multiple embolic cvas Plan continue to monitor telemetry to r/o afib would start anticoagulation with iv heparin but would wait until Monday after obtain repeat head CT due to risk of hemorrhagic conversion if started early Diagnosis/Plan: Subjective Subjective Comments No acute events reported Active Medications Current Medications Medications (Trade) Dose Ordered Sig/César Route Start Time Stop Time Status Last Admin (NS 1000 ml Inj) 1,000 ml @ 70 mls/hr [id number] IV 02/20/17 13:10 02/21/17 03:28 (Lipitor) 10 mg HS PO 02/20/17 21:00 02/20/17 20:50 (Heparin Inj) 5,000 units Q12H SQ 02/20/17 15:00 02/21/17 14:49 (Folate) 1 mg BID PO 02/20/17 21:00 02/21/17 09:41 (Vitamin C) 1,000 mg DAILY PO 02/21/17 09:00 02/21/17 09:41 (Theragran) 1 tab DAILY PO 02/21/17 09:00 02/21/17 09:41 (Apresoline Inj) 10 mg Q1HR PRN IV PUSH 02/20/17 13:15 (Tylenol) 650 mg Q6H PRN PO 02/20/17 13:15 (Protonix Inj) 40 mg DAILY IV 02/21/17 09:00 02/21/17 09:40 (Zofran Inj) 4 mg Q6H PRN IV 02/20/17 13:15 Miscellaneous Information 1 [id number] XX 02/20/17 13:15 (Chlorhexidine 2% Cloth) 3 pack Taper DAILY@04 TOP 02/21/17 04:00 02/17/18 03:59 02/21/17 04:00 (Chlorhexidine 2% Cloth) 3 pack UNSCH PRN TOP 02/20/17 13:15 (Tammy-Colace) 1 tab BID PO 02/20/17 21:00 02/21/17 09:41 (Milk Of Magnesia Liq) 30 ml Q12H PRN PO 02/20/17 13:15 (Senokot) 17.2 mg Q12H PRN PO 02/20/17 13:15 (Dulcolax Supp) 10 mg DAILY PRN RECTAL 02/20/17 13:15 (Lactulose Liq) 30 ml DAILY PRN PO 02/20/17 13:15 (NS Flush) 2 ml BID IV FLUSH 02/21/17 09:00 02/21/17 09:40 (NS Flush) 2 ml UNSCH PRN IV FLUSH 02/20/17 21:45 (Aspirin) 325 mg DAILY PO 02/21/17 09:00 02/21/17 09:41 (NovoLOG SUPPLEMENTAL SCALE) 1 ACHS SQ 02/21/17 07:00 (D50w (Vial) Inj) 50 ml UNSCH PRN IV PUSH 02/20/17 21:45 (Glucagon Inj) 1 mg UNSCH PRN OTHER 02/20/17 21:45 (Norvasc) 5 mg DAILY PO 02/22/17 09:00 (Coreg) 6.25 mg Q12HR PO 02/21/17 21:00 (Nitroglycerin 2% Oint) 2 inch Q6HR PRN TOPICAL 02/21/17 09:45 (Ofirmev Inj) 1,000 mg Q8HR IV 02/21/17 14:00 02/23/17 13:59 02/21/17 14:49 Allergies Allergies Coded Allergies No Known Allergies (Verified02/20/17) Exam I&O / VS 02/20/17 02/20/17 02/21/17 14:59 22:59 06:59 Intake Total 669 ml 403 ml Balance 669 ml 403 ml Intake IV Total 669 ml 403 ml Vital Signs Date Time Temp Pulse Resp B/P Pulse Ox O2 Delivery O2 Flow Rate FiO2 02/21/17 17:06 97.8 66 17 172/93 96 02/21/17 14:00 66 02/21/17 12:00 63 02/21/17 12:00 96.5 67 24 135/83 96 02/21/17 10:00 69 02/21/17 08:00 59 02/21/17 08:00 97.8 59 18 177/83 95 02/21/17 07:30 95 Nasal Cannula 2.00 02/21/17 06:00 62 02/21/17 04:00 98.7 73 21 209/107 95 02/21/17 04:00 73 02/21/17 02:00 72 02/21/17 00:00 64 02/21/17 00:00 98.4 74 22 185/86 94 02/20/17 22:00 86 02/20/17 20:07 98.2 90 20 217/106 98 02/20/17 20:04 96 Nasal Cannula 2.00 02/20/17 19:42 90 20 191/88 99 Nasal Cannula Exam Comments lethargic Cn intact MOTOR--generalized weakness Objective Radiology Results MRI brain--multiple small acute strokes in bilateral cerebellar hemispheres, occipital lobes, parietal MRA brain 50% stenosis right M2 carotid US--no hemodynamically significant stenosis ECHO--no evidence for embolic source. Micro and Labs Laboratory Tests Test 02/20/17 02/21/17 02/21/17 20:10 03:44 12:17 Nasal Screen MRSA (PCR) MRSA NOT DETECTED Hemoglobin A1c 5.4 Phosphorus Level 3.9 Magnesium Level 2.1 Triglycerides Level 77 Cholesterol Level 175 LDL Cholesterol 96 HDL Cholesterol 63.6 Cholesterol/HDL Ratio 2.75 White Blood Count 8.5 Red Blood Count 3.97 Hemoglobin 12.8 Hematocrit 37.5 Mean Corpuscular Volume 94.5 Mean Corpuscular Hemoglobin 32.3 Mean Corpuscular Hemoglobin 34.2 Concent Red Cell Distribution Width 13.6 Platelet Count 297 Mean Platelet Volume 7.8 Sodium Level 137 Potassium Level 3.4 Chloride Level 105 Carbon Dioxide Level 23.3 Anion Gap 9 Blood Urea Nitrogen 15 Creatinine 0.55 Estimat Glomerular Filtration 106 Rate Random Glucose 146 Calcium Level 8.5 Date/Time Procedure Status Source Growth 02/20/17 13:48 Urine Culture Received Urine Random Urine Pending Cristopher Avalos PhD Feb 21, 2017 19:35
[2017-02-21] MEDS: ATORVASTATIN 10 MG TAB PO SCH (20:54)
[2017-02-21] MEDS ORDERED: levETIRAcetam INJ 500 MG in SODIUM CHLORIDE 0.9% INJ 100 ML IV SCH (21:00)
[2017-02-21] MEDS ORDERED: CARVEDILOL 6.25 MG TAB PO SCH (21:00)
[2017-02-22] VITALS: BP 168/82; PULSE 62; RESP 19; TEMP 96.8; O2SAT 98
[2017-02-22] MEDS: CHLORHEXIDINE GLUCONATE 2 % 1 PACK (2 CLOTHS) TOP SCH (03:17)
[2017-02-22] MEDS: HEPARIN SODIUM - SQ 10,000 UNITS/ML VIAL SQ SCH ×2 (03:17→15:00)
[2017-02-22 04:00] VITALS: BP 157/77; PULSE 67; RESP 19; TEMP 98.5; O2SAT 94
[2017-02-22] MEDS: ACETAMINOPHEN 1000 MG/100 ML VIAL IV SCH ×3 (05:25→15:22)
[2017-02-22] MEDS: INSULIN ASPART SUPPLEMENTAL SCALE SQ SCH ×3 (06:21→15:23)
[2017-02-22 08:00] VITALS: BP 170/98; PULSE 80; RESP 19; TEMP 97.9; O2SAT 95
[2017-02-22] MEDS: SODIUM CHLORIDE 0.9% FLUSH 5 ML FLUSH IV FLUSH SCH (08:01)
[2017-02-22] MEDS: SODIUM CHLOR 0.9% 1000 ML INJ 1,000 ML IV SCH (08:10)
[2017-02-22] MEDS: PANTOPRAZOLE SODIUM 40 MG VIAL IV SCH (08:11)
[2017-02-22] MEDS: ASPIRIN 325 MG TAB PO SCH (08:13)
[2017-02-22] MEDS: ASCORBIC ACID 500 MG TAB PO SCH (08:20)
[2017-02-22] MEDS: MULTIVITAMIN TAB PO SCH (08:20)
[2017-02-22] MEDS: FOLIC ACID 1 MG TAB PO SCH (08:20)
[2017-02-22] MEDS: DOCUSATE SODIUM 50 MG/SENNA 8.6 MG TAB PO SCH (08:20)
[2017-02-22 08:28] LABS: HEMATOCRIT 36.1 % (35.0-46.0); MEAN CELL VOLUME 94.3 FL (80.0-100.0); MEAN CORPUSCULAR HEMOGLOBIN 32.1 PG (27.0-34.0); PLATELET COUNT 306 TH/MM3 (150-450); RED BLOOD COUNT 3.83 MIL/MM3 (4.00-5.30); RED CELL DISTRIBUTION WIDTH 13.7 % (11.6-17.2); REVIEW FLAG FINAL; WHITE BLOOD COUNT 7.4 TH/MM3 (4.0-11.0)
[2017-02-22] MEDS ORDERED: ENALAPRILAT 2.5 MG/2 ML VIAL IV PUSH PRN (08:30)
[2017-02-22 08:40] LABS: BICARBONATE 22.8 MEQ/L (21.0-32.0); POTASSIUM 3.7 MEQ/L (3.5-5.1)
[2017-02-22] MEDS ORDERED: amLODIPine BESYLATE 5 MG TAB PO SCH (09:00)
[2017-02-22] MEDS ORDERED: CARVEDILOL 12.5 MG TAB PO SCH (09:00)
--- NOTE | 2017-02-22 09:31 | HHI.PR ---
Subjective Remarks The patient is in bed she appears lethargic, she is worsening compared with yesterday. Daughter at bedside says she was able to feed her yesterday however today she is falling asleep easily. She also noticed right knee and right leg are now moving much. Patient also is not talking much. She denies any chest pain or shortness of breath. She feels sleepy. She follows some commands she is opening eyes and also she is able to move the left side of the body however not the right hand or right leg. Moves right leg a little bit with painful stimuli. Objective Vitals Vital Signs Date Time Temp Pulse Resp B/P Pulse Ox O2 Delivery O2 Flow Rate FiO2 02/22/17 08:00 97.9 80 19 170/98 95 02/22/17 04:00 98.5 67 19 157/77 94 02/22/17 03:48 Nasal Cannula 2.50 02/22/17 00:00 96.8 62 19 168/82 98 02/21/17 20:00 99.2 97 20 128/77 95 02/21/17 17:06 97.8 66 17 172/93 96 02/21/17 14:00 66 02/21/17 12:00 63 02/21/17 12:00 96.5 67 24 135/83 96 02/21/17 10:00 69 I/O 02/21/17 02/21/17 02/21/17 02/22/17 02/22/17 02/22/17 06:59 14:59 22:59 06:59 14:59 22:59 Intake Total 403 ml 864 ml 917 ml Balance 403 ml 864 ml 917 ml Intake IV Total 403 ml 864 ml 917 ml # Voids 2 1 1 Result Diagram: 02/22/17 0715 02/22/17 0715 Imaging Last Impressions Head Magnetic Resonance Angiography 02/21/17 0000 Signed Impressions: Service Date/Time: Tuesday, February 21, 2017 15:48 - CONCLUSION: The origin of the RIGHT M2 segment is 50%% narrowed. The basilar artery is diffusely narrowed which is mostly artifactual. Macario Johnson MD Brain MRI 02/21/17 0000 Signed Impressions: Service Date/Time: Tuesday, February 21, 2017 15:48 - CONCLUSION: 1. Multifocal areas of acute infarction within both cerebellar hemispheres, occipital lobes, left brain stem and right parietal lobe concerning for showering emboli. Echocardiogram recommended. 2. Cerebral atrophy and chronic ischemic small vessel vasculopathy. Geovanny Sagastume MD Head CT 02/20/17 0000 Signed Impressions: Service Date/Time: Monday, February 20, 2017 12:02 - CONCLUSION: No acute disease. Macario Johnson MD Carotid Artery Ultrasound 02/20/17 0000 Signed Impressions: Service Date/Time: Monday, February 20, 2017 13:53 - CONCLUSION: 1. Calcified atherosclerotic plaque more abundant on the right. No hemodynamically significant stenosis observed. Mild elevation of the velocities of the distal left ICA felt to be due to the tortuosity of that vessel. 2. Antegrade flow involving both vertebral arteries. Tashi Polk Jr., MD Objective Remarks GENERAL: 81-year-old female, ill appearing, currently resting in bed appears lethargic. SKIN: Warm and dry. No rash. Ecchymoses noted over right hip greater trochanteric region about 4 x 4 centimeters CARDIOVASCULAR: Regular rate and rhythm. S1, S2. No S4 without murmur RESPIRATORY: Clear to auscultation bilaterally without wheezes rales or rhonchi GASTROINTESTINAL: Abdomen soft, non-tender, nondistended. Hepatic and splenic margins not palpable. MUSCULOSKELETAL: Right lower extremity everted. No peripheral edema. NEUROLOGICAL: Lethargic but responds by name and follows some commands. Goes to sleep fast. No LE edema. Strength 0 out of 5 right upper extremity. 0 out of 5 right lower extremity. Moves slightly her toes with painful stimuli on the right side. 5+ out of 5 left upper extremity and left lower extremity. Normal sensation to light touch and pinprick. A/P Problem List: (1) CVA (cerebral vascular accident) ICD Code: I63.9 Status: Acute (2) Hypertensive crisis ICD Code: I16.9 Status: Acute (3) Pelvic fracture ICD Code: S32.9XXA Status: Chronic Assessment and Plan Neuro/Psych: TIA? Versus left hemispheric stroke Right upper/lower extremity weakness acute worsening 02/22/17 Possible right epileptiform activity CT brain 02/20 revealed no acute intracranial findings Carotid Dopplers 02/20 revealed less than 50% stenosis plaque at carotid bulb right ICA. Left carotid bulb with negative stenosis. EEG revealed moderate encephalopathy with possible epileptiform activity right side. Restarting Keppra 500 IV twice a day. Repeat EEG in a.m. Neurology/Dr. Avalos consulted No plans for alteplase present due to recent pelvic fractures MRI/MRA brain as above. however 02/22/17: Patient is noted more lethargic and was more weakness on the right arm and leg. Dr. Avalos neurology was notified. MRI stat reviewed with multiple embolic strokes however per radiology reading not much change form previous MRI . Also plan for EEG today. Patient is already on keppra Hemoglobin A1c I 5.5, lipid panel showed elevated HDL of 63. Otherwise normal 2-D echocardiogram reviewed with aortic sclerosis otherwise fairly unremarkable echo Neurochecks per protocol Given aspirin 325 mg by mouth daily CV: Hypertension crisis Elevated HDL EKG revealed normal sinus rhythm rate 85. Normal NE, QT intervals. Troponin 0.02 2-D echocardiogram ordered complete stroke protocol Will keep systolic blood pressure less than 220, diastolic pressure less than 120 for 24 hours Continue Lipitor 10mg by mouth daily Resp: Nasal cannula to maintain saturations greater than or equal to 92% Incentive spirometry while awake GI: Advance diet as tolerated Protonix for GI prophylaxis Tammy-Colace for bowel regimen : Canales catheter if indicated for accurate I's and O's in a critically ill patient. Remove within 48 hours Endo: Sliding-scale insulin if indicated to maintain euglycemia Check hemoglobin A1c5.5 Renal: Creatinine currently within normal limits Urine output accurate I's and O's Heme: CBC within normal limits Coags within normal limits Recheck in a.m. ID: Monitor for infection FEN: Replace electrolytes as clinically indicated MSK: Recent pelvic fracture Obtain records from [facility] PT/OT evaluate and treat Access - Utilize peripheral IV. Central line if indicated Prophylaxis - GI - Protonix - DVT - SCD/heparin subcutaneous DC plan : pending improvement Problem Qualifiers (1) CVA (cerebral vascular accident): Qualified Code: I63.9 - Cerebrovascular accident (CVA), unspecified mechanism (2) Pelvic fracture: Qualified Code: S32.9XXS - Closed nondisplaced fracture of pelvis, unspecified part of pelvis, sequela Yessica Perdue MD Feb 22, 2017 09:30
--- NOTE | 2017-02-22 11:14 | RADRPT ---
EXAM DATE/TIME: 02/22/2017 10:13 [place] COMPARISON: Prior study 02/21/17, use for comparison. INDICATIONS : Stroke, hemorrhage. MEDICAL HISTORY : Hypertension. SURGICAL HISTORY : Right hand. ENCOUNTER: Initial ACUITY: 4-6 days PAIN SCORE: 0/10 LOCATION: Head TECHNIQUE: Multiplanar, multisequence MRI of the brain was performed without contrast. FINDINGS: MRI of the brain demonstrates multiple bilateral areas of abnormal signal suggesting multiple strokes . The areas include the right occipital, left occipital, left brain stem and left cerebellar hemisph eres are all unchanged. The abnormal areas extend into the right parietal region as well. There is some chronic atrophic change. There is some ischemic demyelinization changes. No demonstra ble areas of hemorrhage are identified. No concerning masses are identified. No significant subdura l/subarachnoid hematomas identified. CONCLUSION: Multiple embolic strokes bilaterally as described above. Very similar distribution to the previous d ay. No obvious mass effect or hemorrhage. Macario Johnson MD on February 22, 2017 at 10:54 Board Certified Radiologist. This report was verified electronically.
[2017-02-22 12:00] VITALS: BP 156/82; PULSE 70; RESP 19; TEMP 97.9; O2SAT 95
[2017-02-22 16:00] VITALS: BP 150/90; PULSE 75; RESP 18; TEMP 97.3; O2SAT 95
--- NOTE | 2017-02-22 16:34 | MG ---
cc: JACOB YOU MD Lab No: Date: 02/22/17 Age: 81 Sex: F Race: DATE OF [address] Kirkpatrick MEDICAL HISTORY Confusion, hypertension, change in neurological status. MEDICATIONS 1. Levetiracetam. 2. Norvasc. 3. Acetaminophen. 4. Ascorbic acid. 5. Theragran. 6. Aspirin. 7. Lipitor. 8. Folic acid. 9. Heparin DESCRIPTION At the beginning of the EEG the background activity was 7-8 Hz theta with intermittent background slowing of 5-6 Hz. The EEG recording was contaminated with excessive muscle and movement artifact. There is breach rhythm at the F3 and F4. Photic stimulation did not elicit a driving response. Hyperventilation was not performed. There were no electrographic seizures or epileptiform discharges noted. INTERPRETATION The background slowing may indicate an encephalopathic pattern that may be related to medications, metabolic derangement or hypoxic/anoxic effects. There is no ictal activity. Absence of electrographic seizures or epileptiform discharges does not rule out the diagnosis of epilepsy. Clinical correlation is recommended. Jacob You MD RGO/EO /3:46 PM /4:32 PM MTDTed
[2017-02-22] MEDS ORDERED: AMLO5 PO (18:18)
[2017-02-22] MEDS ORDERED: ASPI325T PO (18:18)
--- NOTE | 2017-02-22 18:19 | HHI.DS ---
Discharge Summary Admission Date Feb 20, 2017 at 16:07 Discharge Date: Feb 22, 2017 Admitting Diagnosis CVA (1) CVA (cerebral vascular accident) ICD Code: I63.9 Diagnosis: Principal (2) Hypertensive crisis ICD Code: I16.9 Diagnosis: Principal (3) Pelvic fracture ICD Code: S32.9XXA Diagnosis: Principal Procedures none Brief History - From Admission 81-year-old . Admission . Past medical history includes hypertension. Patient is a resident of [facility]. Patient presents to [facility] from that facility with acute onset right-sided weakness and dysarthria. 20, patient was at a health food store one fell on her right side and had a right acetabular/pelvic fracture. Patient currently is weak on her right upper and lower extremity at baseline. At baseline. Today,. Presents to [facility] NIH score 5. 1 for right arm and leg drift, 2 for limb ataxia and [address] head revealed no acute intracranial findings. Dr. Avalos/neurology was notified. Due to recent pelvic fracture not a candidate for alteplase. Symptoms are resolving at the present time. Due to her underlying hypertension we are asked to CBC/BMP: 02/22/17 0715 02/22/17 0715 Significant Findings Laboratory Tests Test 02/20/17 02/20/17 02/21/17 02/21/17 12:15 13:48 03:44 12:17 Albumin 3.0 GM/DL (3.4-5.0) Neutrophils (%) (Auto) 79.5 % (16.0-70.0) Monocytes (%) (Auto) 8.7 % (0.0-8.0) Neutrophils # (Auto) 8.5 TH/MM3 (1.8-7.7) Fibrinogen 471 mg/dL (227-377) Bedside Glucose 110 MG/DL (60-95) Total Creatine Kinase 199 U/L (26-192) Troponin I LESS THAN 0.02 NG/ML (0.02-0.05) Urine Turbidity HAZY (CLEAR) Urine Leukocyte Esterase SMALL (NEG) Urine WBC 12 /hpf (0-5) Urine Bacteria OCC /hpf (NONE) Urine Mucus FEW /lpf (OCC) HDL Cholesterol 63.6 MG/DL (40.0-60.0) Red Blood Count 3.97 MIL/MM3 (4.00-5.30) Potassium Level 3.4 MEQ/L (3.5-5.1) Random Glucose 146 MG/DL (74-106) Test 02/22/17 07:15 Red Blood Count 3.83 MIL/MM3 (4.00-5.30) Chloride Level 110 MEQ/L (98-107) Creatinine 0.43 MG/DL (0.50-1.00) Imaging Last Impressions Brain MRI 02/22/17 0915 Signed Impressions: Service Date/Time: Wednesday, February 22, 2017 10:13 - CONCLUSION: Multiple embolic strokes bilaterally as described above. Very similar distribution to the previous day. No obvious mass effect or hemorrhage. Macario Johnson MD Head Magnetic Resonance Angiography 02/21/17 0000 Signed Impressions: Service Date/Time: Tuesday, February 21, 2017 15:48 - CONCLUSION: The origin of the RIGHT M2 segment is 50%% narrowed. The basilar artery is diffusely narrowed which is mostly artifactual. Macario Johnson MD Head CT 02/20/17 0000 Signed Impressions: Service Date/Time: Monday, February 20, 2017 12:02 - CONCLUSION: No acute disease. Macario Johnson MD Carotid Artery Ultrasound 02/20/17 0000 Signed Impressions: Service Date/Time: Monday, February 20, 2017 13:53 - CONCLUSION: 1. Calcified atherosclerotic plaque more abundant on the right. No hemodynamically significant stenosis observed. Mild elevation of the velocities of the distal left ICA felt to be due to the tortuosity of that vessel. 2. Antegrade flow involving both vertebral arteries. Tashi Polk Jr., MD PE at Discharge GENERAL: 81-year-old female, ill appearing, currently resting in bed appears lethargic. SKIN: Warm and dry. No rash. Ecchymoses noted over right hip greater trochanteric region about 4 x 4 centimeters CARDIOVASCULAR: Regular rate and rhythm. S1, S2. No S4 without murmur RESPIRATORY: Clear to auscultation bilaterally without wheezes rales or rhonchi GASTROINTESTINAL: Abdomen soft, non-tender, nondistended. Hepatic and splenic margins not palpable. MUSCULOSKELETAL: Right lower extremity everted. No peripheral edema. NEUROLOGICAL: Lethargic but responds by name and follows some commands. Goes to sleep fast. No LE edema. Strength 0 out of 5 right upper extremity. 0 out of 5 right lower extremity. Moves slightly her toes with painful stimuli on the right side. 5+ out of 5 left upper extremity and left lower extremity. Normal sensation to light touch and pinprick. Transfer Summary See below Hospital Course Neuro/Psych: TIA? Versus left hemispheric stroke Right upper/lower extremity weakness acute worsening on 02/22/17 Possible right epileptiform activity CT brain 02/20 revealed no acute intracranial findings Carotid Dopplers 02/20 revealed less than 50% stenosis plaque at carotid bulb right ICA. Left carotid bulb with negative stenosis. EEG revealed moderate encephalopathy with possible epileptiform activity right side. Restarting Keppra 500 IV twice a day. Repeat EEG in a.m. Neurology/Dr. Avalos consulted No plans for alteplase present due to recent pelvic fractures MRI/MRA brain as above. however 02/22/17: Patient is noted more lethargic and was more weakness on the right arm and leg. Dr. Avalos neurology was notified. MRI stat reviewed with multiple embolic strokes however per radiology reading not much change form previous MRI . Also plan for EEG today reviewed . Patient is already on keppra. Patient /family tells me they have DNR status. Patient /family incline also per recommendations of Sr Avalos neurology for hospice consult. Seen by hospice and patient/family decided to go to [facility][ice. Patient is discharged to hospice. Hemoglobin A1c I 5.5, lipid panel showed elevated HDL of 63. Otherwise normal 2-D echocardiogram reviewed with aortic sclerosis otherwise fairly unremarkable echo Neurochecks per protocol Given aspirin 325 mg by mouth daily CV: Hypertension crisis Elevated HDL EKG revealed normal sinus rhythm rate 85. Normal [place], QT intervals. Troponin 0.02 2-D echocardiogram ordered complete stroke protocol Will keep systolic blood pressure less than 220, diastolic pressure less than 120 for 24 hours Continue Lipitor 10mg by mouth daily Resp: Nasal cannula to maintain saturations greater than or equal to 92% Incentive spirometry while awake GI: Advance diet as tolerated Protonix for GI prophylaxis Tammy-Colace for bowel regimen : Canales catheter if indicated for accurate I's and O's in a critically ill patient. Remove within 48 hours Endo: Sliding-scale insulin if indicated to maintain euglycemia Check hemoglobin A1c5.5 Renal: Creatinine currently within normal limits Urine output accurate I's and O's Heme: CBC within normal limits Coags within normal limits Recheck in a.m. ID: Monitor for infection FEN: Replace electrolytes as clinically indicated MSK: Recent pelvic fracture Obtain records from [facility] PT/OT evaluate and treat Access - Utilize peripheral IV. Central line if indicated Prophylaxis - GI - Protonix - DVT - SCD/heparin subcutaneous Code status: DNR Patient was noted deteriorating on 02/22/17 . Repeat MRI reviewed. Dr Avalos neurology recommended hospice eval. She was discharged to hospice. Pt Condition on Discharge: Deteriorating Discharge Disposition: Hospice/Med Facility Discharge Time: > 30 minutes Discharge Instructions DIET: Follow Instructions for: As Tolerated, No Restrictions Speech Therapy-Diet Recommends: Regular Activities you can perform: Regular-No Restrictions New Medications: Amlodipine (Norvasc) 5 Mg Tab 5 MG PO DAILY Blood Pressure Management #30 TAB Aspirin (Aspirin) 325 Mg Tab 325 MG PO DAILY Blood Clot Prevention #30 TAB Continued Medications: Acetaminophen (Tylenol) 325 Mg Tab 650 MG PO Q4H PRN PAIN SCALE 1 TO 10 Ref 0 TAB Ascorbic Acid (C-1000) 1,000 Mg Tablet 1 TAB PO DAILY Bisacodyl Supp (Dulcolax Supp) 10 Mg Supp 10 MG RECTAL DAILY PRN CONSTIPATION Ref 0 SUPP Folic Acid (Folic Acid) 800 Mcg Cap 800 MCG PO BID CAP Magnesium Citrate Liq (Citroma Liq) 300 Ml Liq 300 ML PO DAILY PRN CONSTIPATION Ref 0 BOTTLE Magnesium Hydroxide Concentrate Liq (Milk of Magnesia Concentrate Liq) 1,200 Mg/ 5 Ml Susp 30 ML PO DAILY PRN CONSTIPATION BOTTLE Multivitamin (One Daily Multivitamin) 1 Each Tablet 1 TAB PO DAILY Tramadol (Tramadol) 50 Mg Tab 100 MG PO Q6H PRN PAIN Ref 0 TAB Yessica Perdue MD Feb 22, 2017 18:19
--- NOTE | 2017-02-22 19:11 | HHI.PR ---
Review/Management Diagnosis multiple embolic cvas Plan prognosis poor. Patients family wishes hospice Diagnosis/Plan: Subjective Subjective Comments No acute events reported Pt has become lethargic, less responsive. Active Medications Current Medications Medications (Trade) Dose Ordered Sig/César Route Start Time Stop Time Status Last Admin (NS 1000 ml Inj) 1,000 ml @ 70 mls/hr [id number] IV 02/20/17 13:10 02/22/17 08:10 (Lipitor) 10 mg HS PO 02/20/17 21:00 02/21/17 20:54 (Heparin Inj) 5,000 units Q12H SQ 02/20/17 15:00 02/22/17 03:17 (Folate) 1 mg BID PO 02/20/17 21:00 02/22/17 08:20 (Vitamin C) 1,000 mg DAILY PO 02/21/17 09:00 02/22/17 08:20 (Theragran) 1 tab DAILY PO 02/21/17 09:00 02/22/17 08:20 (Apresoline Inj) 10 mg Q1HR PRN IV PUSH 02/20/17 13:15 (Tylenol) 650 mg Q6H PRN PO 02/20/17 13:15 (Protonix Inj) 40 mg DAILY IV 02/21/17 09:00 02/22/17 08:11 (Zofran Inj) 4 mg Q6H PRN IV 02/20/17 13:15 Miscellaneous Information 1 [id number] XX 02/20/17 13:15 (Chlorhexidine 2% Cloth) 3 pack Taper DAILY@04 TOP 02/21/17 04:00 02/17/18 03:59 02/21/17 04:00 (Chlorhexidine 2% Cloth) 3 pack UNSCH PRN TOP 02/20/17 13:15 (Tammy-Colace) 1 tab BID PO 02/20/17 21:00 02/22/17 08:20 (Milk Of Magnesia Liq) 30 ml Q12H PRN PO 02/20/17 13:15 (Senokot) 17.2 mg Q12H PRN PO 02/20/17 13:15 (Dulcolax Supp) 10 mg DAILY PRN RECTAL 02/20/17 13:15 (Lactulose Liq) 30 ml DAILY PRN PO 02/20/17 13:15 (NS Flush) 2 ml BID IV FLUSH 02/21/17 09:00 02/21/17 09:40 (NS Flush) 2 ml UNSCH PRN IV FLUSH 02/20/17 21:45 (Aspirin) 325 mg DAILY PO 02/21/17 09:00 02/22/17 08:13 (NovoLOG SUPPLEMENTAL SCALE) 1 ACHS SQ 02/21/17 07:00 (D50w (Vial) Inj) 50 ml UNSCH PRN IV PUSH 02/20/17 21:45 (Glucagon Inj) 1 mg UNSCH PRN OTHER 02/20/17 21:45 (Norvasc) 5 mg DAILY PO 02/22/17 09:00 02/22/17 08:13 (Nitroglycerin 2% Oint) 2 inch Q6HR PRN TOPICAL 02/21/17 09:45 (Ofirmev Inj) 1,000 mg Q8HR IV 02/21/17 14:00 02/23/17 13:59 02/22/17 15:22 (Coreg) 12.5 mg Q12HR PO 02/22/17 09:00 02/22/17 08:41 (Vasotec Inj) 2.5 mg Q6H PRN IV PUSH 02/22/17 08:30 Allergies Allergies Coded Allergies No Known Allergies (Verified02/20/17) Exam I&O / VS 02/21/17 02/21/17 02/22/17 14:59 22:59 06:59 Intake Total 864 ml 917 ml Balance 864 ml 917 ml Intake IV Total 864 ml 917 ml # Voids 2 1 1 Vital Signs Date Time Temp Pulse Resp B/P Pulse Ox O2 Delivery O2 Flow Rate FiO2 02/22/17 17:45 Nasal Cannula 2.50 02/22/17 16:00 97.3 75 18 150/90 95 02/22/17 12:00 97.9 70 19 156/82 95 02/22/17 08:00 97.9 80 19 170/98 95 02/22/17 04:00 98.5 67 19 157/77 94 02/22/17 03:48 Nasal Cannula 2.50 02/22/17 00:00 96.8 62 19 168/82 98 02/21/17 20:00 99.2 97 20 128/77 95 Exam Comments lethargic Cn intact MOTOR--generalized weakness--weaker on right Objective Micro and Labs Laboratory Tests Test 02/22/17 07:15 White Blood Count 7.4 Red Blood Count 3.83 Hemoglobin 12.3 Hematocrit 36.1 Mean Corpuscular Volume 94.3 Mean Corpuscular Hemoglobin 32.1 Mean Corpuscular Hemoglobin 34.0 Concent Red Cell Distribution Width 13.7 Platelet Count 306 Mean Platelet Volume 8.1 Sodium Level 140 Potassium Level 3.7 Chloride Level 110 Carbon Dioxide Level 22.8 Anion Gap 7 Blood Urea Nitrogen 16 Creatinine 0.43 Estimat Glomerular Filtration 141 Rate Random Glucose 96 Calcium Level 8.5 Date/Time Procedure Status Source Growth 02/20/17 13:48 Urine Culture - Preliminary Resulted Urine Random Urine IMMATURE GROWTH - REINCUBACristopher Padron PhD MD Feb 22, 2017 19:11
== END 2017-02-22 21:27 | disposition hospice, inpatient (51) | DRG 64 ==
LOC: NEPC 11:47 → NEDA 16:07 → HIME 19:50 → N05A 02-21 16:50
PROVIDERS: ADMIT Hospitalist; ATTEND Hospitalist
DX: I63.443 Cerebral infarction due to embolism of bilateral cerebellar arteries (principal); G93.40 Encephalopathy, unspecified; I16.9 Hypertensive crisis, unspecified; G81.91 Hemiplegia, unspecified affecting right dominant side; R29.810 Facial weakness; Z66 Do not resuscitate; R47.81 Slurred speech; I10 Essential (primary) hypertension; R29.705 NIHSS score 5; R47.1 Dysarthria and anarthria; S32.9XXD Fracture of unspecified parts of lumbosacral spine and pelvis, subsequent encounter for fracture with routine healing; Z87.891 Personal history of nicotine dependence
CPT/HCPCS: 70450; 70544; 70551; 80048; 80061; 80076; 80307; 81001; 82435; 82550; 82552; 82565; 82947; 82948; 83036; 83690; 83735; 84100; 84132; 84295; 84443; 84484; 84520; 85025; 85027; 85384; 85610; 85730; 86850; 86900; 86901; 87086; 87641; 93005; 93306; 93880; 95819; 96361; 96372; 96374; 96375; C9113; J0131; J0360; J1644; J1953; J7030